=== PATIENT | female | born 1980 | race Caucasian/White ===

== ENCOUNTER 2018-01-11 17:03 | Emergency (ER) | payer MEDICAID ==
[2018-01-11] MEDS: ACETAMINOPHEN 325 MG TAB PO (17:28)
[2018-01-11 17:36] LABS: URINE BLOOD (Dip) POC 1+ (NEGATIVE); URINE GLUCOSE (Dip) POC Negative (NEGATIVE); URINE KETONES (Dip) POC Trace (NEGATIVE); URINE LEUKOCYTE EST (Dip) POC Negative (NEGATIVE); URINE NITRITE (Dip) POC Negative (NEGATIVE); URINE TOTAL PROTEIN POC Negative (NEGATIVE)
== END 2018-01-11 18:57 | disposition home or self-care (01) ==
LOC: FTE 17:03
DX: R10.30 Lower abdominal pain, unspecified (principal); R10.9 Unspecified abdominal pain
CPT/HCPCS: 74018; 81003; 81025; 93005; 99284-25

== ENCOUNTER 2018-03-04 01:49 | Inpatient (IN) | payer MEDICAID, OTHER ==
[2018-03-04 02:32] LABS: ADD MAN DIFF? NO
[2018-03-04 02:43] LABS: ABNORMAL IP MESSAGE 1; BASOPHILS % 0.2 % (0.0-2.0); EOSINOPHILS # 1.2 10^3/ul (0.0-0.5); EOSINOPHILS % 9.8 % (0.0-7.0); HEMATOCRIT 28.8 % (37.0-47.0); HEMOGLOBIN 8.9 g/dl (12.0-16.0); LYMPHOCYTES # 0.6 10^3/ul (0.8-2.9); LYMPHOCYTES % 4.8 % (15.0-51.0); MEAN CORPUSCULAR HEMOGLOBIN 22.6 pg (29.0-33.0); MEAN CORPUSCULAR HGB CONC 30.9 g/dl (32.0-37.0); MEAN CORPUSCULAR VOLUME 73.3 fl (82.0-101.0); MONOCYTE # 0.7 10^3/ul (0.3-0.9); MONOCYTES % 5.4 % (0.0-11.0); NEUTROPHIL # 9.6 10^3/ul (1.6-7.5); NEUTROPHILS % 79.2 % (39.0-77.0); PLATELET COUNT 49 10^3/UL (140-415); RED BLOOD COUNT 3.93 10^6/ul (4.20-5.40); RED CELL DISTRIBUTION WIDTH 21.3 % (11.5-14.5)
[2018-03-04 02:43] LABS: WHITE BLOOD COUNT 12.1 10^3/ul (4.8-10.8)
[2018-03-04 02:45] LABS: POSITIVE DIFF @See below
[2018-03-04 02:54] LABS: INR 1.91; PROTIME 22.3 Sec (11.9-14.9); PT RATIO 1.7
[2018-03-04 02:55] LABS: ALANINE AMINOTRANSFERASE 27 IU/L (13-69); ALBUMIN 2.3 g/dl (3.3-4.9); ALBUMIN/GLOBULIN RATIO 0.82; ALKALINE PHOSPHATASE 74 IU/L (42-121); ANION GAP 15 (8-16); ASPARTATE AMINO TRANSFERASE 27 IU/L (15-46); BILIRUBIN,INDIRECT 0.1 mg/dl (0-1.1); BILIRUBIN,TOTAL 0.1 mg/dl (0.2-1.3); BLOOD UREA NITROGEN 12 mg/dl (7-20); CALCIUM 7.6 mg/dl (8.4-10.2); CARBON DIOXIDE 20 mmol/L (21-31); CHLORIDE 98 mmol/L (97-110); CHOL/HDL RATIO 3.3 RATIO; CHOLESTEROL 107 mg/dl (100-200); CREATININE 0.79 mg/dl (0.44-1.00); GLUCOSE 115 mg/dl (70-220); HDL CHOLESTEROL 32 mg/dl (34-82); LDL CHOLESTEROL,CALCULATED 25 mg/dl; PARTIAL THROMBOPLASTIN TIME 31.7 Sec (25.0-35.0); POTASSIUM 3.8 mmol/L (3.5-5.1); SODIUM 129 mmol/L (135-144); TOTAL PROTEIN 5.1 g/dl (6.1-8.1); TRIGLYCERIDES 249 mg/dl (0-149)
[2018-03-04 03:03] LABS: ADD UMIC NO; UR ASCORBIC ACID NEGATIVE (NEGATIVE); UR BILIRUBIN (Dip) NEGATIVE (NEGATIVE); UR BLOOD (Dip) NEGATIVE (NEGATIVE); UR CLARITY CLEAR (CLEAR); UR COLOR STRAW (YELLOW); UR GLUCOSE (Dip) NEGATIVE (NEGATIVE); UR KETONES (Dip) TRACE mg/dL (NEGATIVE); UR LEUKOCYTE ESTERASE (Dip) NEGATIVE Leu/ul (NEGATIVE); UR NITRITE (Dip) NEGATIVE (NEGATIVE); UR SPECIFIC GRAVITY (Dip) > 1.060 (1.003-1.030); UR TOTAL PROTEIN (Dip) NEGATIVE (NEGATIVE); UR UROBILINOGEN (Dip) NEGATIVE (NEGATIVE)
[2018-03-04 03:07] LABS: CK-MB 1.38 ng/ml (0.0-2.4)
[2018-03-04 03:10] LABS: CREATINE KINASE < 20 IU/L (23-200)
[2018-03-04 03:13] LABS: TROPONIN-I 0.191 ng/ml (0.000-0.120)
[2018-03-04 03:17] LABS: AMPHETAMINE/METHAMPHETAMINE Negative (NEGATIVE); BARBITURATES Negative (NEGATIVE); BENZODIAZEPINES Negative (NEGATIVE); CANNABINOIDS Negative (NEGATIVE); COCAINE Negative (NEGATIVE); OPIATES Positive (NEGATIVE)
[2018-03-04] MEDS: SOD CHLORIDE 0.9% IV (03:25)
[2018-03-04 03:26] LABS: ETHANOL < 10.0 mg/dl
[2018-03-04] MEDS: ASPIRIN 300 MG SUPP PR (03:28)
[2018-03-04] MEDS: IOHEXOL 300MG/ML 150 ML BTL (03:50)
[2018-03-04] MEDS: SOD CHLORIDE 0.9% 100 ML (03:51)
[2018-03-04] MEDS ORDERED: ACETAMINOPHEN 325 MG TAB PO (05:00)
[2018-03-04] MEDS ORDERED: ONDANSETRON 4 MG INJ IV (05:00)
[2018-03-04 05:13] LABS: HEMOGLOBIN A1C 5.2 % (0-5.9)
[2018-03-04] MEDS: RIVAROXABAN 15 MG TABLET PO (09:00)
[2018-03-04 10:09] LABS: ADD MAN DIFF? NO
[2018-03-04 10:13] LABS: ABNORMAL IP MESSAGE 1; BASOPHILS % 0.1 % (0.0-2.0); EOSINOPHILS # 0.7 10^3/ul (0.0-0.5); EOSINOPHILS % 4.7 % (0.0-7.0); HEMATOCRIT 32.6 % (37.0-47.0); HEMOGLOBIN 9.8 g/dl (12.0-16.0); LYMPHOCYTES # 0.6 10^3/ul (0.8-2.9); LYMPHOCYTES % 4.4 % (15.0-51.0); MEAN CORPUSCULAR HEMOGLOBIN 22.1 pg (29.0-33.0); MEAN CORPUSCULAR HGB CONC 30.1 g/dl (32.0-37.0); MEAN CORPUSCULAR VOLUME 73.6 fl (82.0-101.0); MONOCYTE # 0.8 10^3/ul (0.3-0.9); MONOCYTES % 5.4 % (0.0-11.0); NEUTROPHIL # 11.7 10^3/ul (1.6-7.5); NEUTROPHILS % 84.8 % (39.0-77.0); PLATELET COUNT 68 10^3/UL (140-415); RED BLOOD COUNT 4.43 10^6/ul (4.20-5.40); RED CELL DISTRIBUTION WIDTH 22.4 % (11.5-14.5)
[2018-03-04 10:13] LABS: WHITE BLOOD COUNT 13.8 10^3/ul (4.8-10.8)
[2018-03-04 11:06] LABS: ALBUMIN/GLOBULIN RATIO 0.87; ANION GAP 18 (8-16); BILIRUBIN,TOTAL 0.1 mg/dl (0.2-1.3); CHOL/HDL RATIO 2.9 RATIO; LDL CHOLESTEROL,CALCULATED 29 mg/dl
[2018-03-04 11:14] LABS: POTASSIUM 4.8 mmol/L (3.5-5.1); SODIUM 135 mmol/L (135-144)
[2018-03-04 11:15] LABS: ALANINE AMINOTRANSFERASE 25 IU/L (13-69); ALBUMIN 2.8 g/dl (3.3-4.9); ALKALINE PHOSPHATASE 87 IU/L (42-121); ASPARTATE AMINO TRANSFERASE 31 IU/L (15-46); BILIRUBIN,INDIRECT 0.1 mg/dl (0-1.1); BLOOD UREA NITROGEN 10 mg/dl (7-20); CALCIUM 7.3 mg/dl (8.4-10.2); CARBON DIOXIDE 18 mmol/L (21-31); CHLORIDE 104 mmol/L (97-110); CHOLESTEROL 131 mg/dl (100-200); CREATININE 0.57 mg/dl (0.44-1.00); GLUCOSE 83 mg/dl (70-220); HDL CHOLESTEROL 44 mg/dl (34-82); TRIGLYCERIDES 291 mg/dl (0-149)
[2018-03-04 11:41] LABS: HEMOGLOBIN A1C 5.1 % (0-5.9)
[2018-03-04 11:42] LABS: CREATINE KINASE 27 IU/L (23-200)
[2018-03-04 11:55] LABS: CK INDEX 8.4; CK-MB 2.28 ng/ml (0.0-2.4)
[2018-03-04 12:07] LABS: TROPONIN-I 0.205 ng/ml (0.000-0.120)
[2018-03-04 12:19] LABS: T3 UPTAKE 37.3 % (23.5-40.5)
[2018-03-04 12:20] LABS: FREE THYROXINE INDEX (Calc) 3.77 ug/ml (0.65-3.89); T4 (THYROXINE) 10.1 ug/dl (5.5-11.0)
[2018-03-04] MEDS: morphine 2 MG INJ IV (12:58)
[2018-03-04 16:22] LABS: CREATINE KINASE 26 IU/L (23-200)
[2018-03-04 16:34] LABS: CK INDEX 7.3; CK-MB 1.91 ng/ml (0.0-2.4)
[2018-03-04] MEDS: SOD CHLORIDE 0.9% 1,000 ML IV (17:14)
[2018-03-04] MEDS ORDERED: ENOXAPARIN 40 MG/0.4 ML SYG SC (18:00)
[2018-03-04 19:04] LABS: INR 1.18; PROTIME 15.2 Sec (11.9-14.9); PT RATIO 1.2
[2018-03-04 19:05] LABS: PARTIAL THROMBOPLASTIN TIME 26.9 Sec (25.0-35.0)
[2018-03-04 19:08] LABS: D-DIMER 2731.63 ng/ml (<460)
[2018-03-04 20:23] LABS: FIBRIN SPLIT PRODUCT <10 ug/ml (<10)
[2018-03-04] MEDS: ATORVASTATIN 20 MG TAB PO (20:33)
[2018-03-05] MEDS: SOD CHLORIDE 0.9% 1,000 ML IV ×3 (03:35→22:57)
[2018-03-05 05:33] LABS: ADD MAN DIFF? NO
[2018-03-05 05:49] LABS: WHITE BLOOD COUNT 14.3 10^3/ul (4.8-10.8)
[2018-03-05 05:49] LABS: ABNORMAL IP MESSAGE 1; BASOPHILS % 0.3 % (0.0-2.0); EOSINOPHILS # 1.2 10^3/ul (0.0-0.5); EOSINOPHILS % 8.4 % (0.0-7.0); HEMATOCRIT 29.1 % (37.0-47.0); HEMOGLOBIN 8.8 g/dl (12.0-16.0); LYMPHOCYTES # 0.7 10^3/ul (0.8-2.9); LYMPHOCYTES % 5.2 % (15.0-51.0); MEAN CORPUSCULAR HEMOGLOBIN 22.9 pg (29.0-33.0); MEAN CORPUSCULAR HGB CONC 30.2 g/dl (32.0-37.0); MEAN CORPUSCULAR VOLUME 75.8 fl (82.0-101.0); MONOCYTE # 0.8 10^3/ul (0.3-0.9); MONOCYTES % 5.7 % (0.0-11.0); NEUTROPHIL # 11.4 10^3/ul (1.6-7.5); NEUTROPHILS % 79.6 % (39.0-77.0); PLATELET COUNT 73 10^3/UL (140-415); RED BLOOD COUNT 3.84 10^6/ul (4.20-5.40)
[2018-03-05 06:02] LABS: POSITIVE DIFF @See below
[2018-03-05 06:45] LABS: ANION GAP 18 (8-16); BLOOD UREA NITROGEN 14 mg/dl (7-20); CARBON DIOXIDE 15 mmol/L (21-31); CHLORIDE 107 mmol/L (97-110); CREATININE 0.71 mg/dl (0.44-1.00); GLUCOSE 80 mg/dl (70-220); POTASSIUM 4.5 mmol/L (3.5-5.1); SODIUM 135 mmol/L (135-144)
[2018-03-05 10:03] LABS: TROPONIN-I 0.264 ng/ml (0.000-0.120)
[2018-03-05] MEDS: FENTAnyl 50 MCG/ML VIAL IV ×3 (10:20→23:18)
[2018-03-05] MEDS: LIDOCAINE 1% (MDV) 10 ML INJ (15:34)
[2018-03-05] MEDS: ATORVASTATIN 20 MG TAB PO (20:13)
[2018-03-06 08:05] LABS: ADD MAN DIFF? NO
[2018-03-06 08:14] LABS: WHITE BLOOD COUNT 14.8 10^3/ul (4.8-10.8)
[2018-03-06 08:14] LABS: ABNORMAL IP MESSAGE 1; BASOPHILS % 0.2 % (0.0-2.0); EOSINOPHILS # 0.4 10^3/ul (0.0-0.5); HEMATOCRIT 28.6 % (37.0-47.0); HEMOGLOBIN 8.4 g/dl (12.0-16.0); LYMPHOCYTES # 0.4 10^3/ul (0.8-2.9); LYMPHOCYTES % 2.9 % (15.0-51.0); MEAN CORPUSCULAR HEMOGLOBIN 23.3 pg (29.0-33.0); MEAN CORPUSCULAR HGB CONC 29.4 g/dl (32.0-37.0); MEAN CORPUSCULAR VOLUME 79.4 fl (82.0-101.0); MEAN PLATELET VOLUME 9.6 fl (7.4-10.4); MONOCYTE # 0.7 10^3/ul (0.3-0.9); NEUTROPHILS % 87.9 % (39.0-77.0); RED CELL DISTRIBUTION WIDTH 24.3 % (11.5-14.5)
[2018-03-06 08:18] LABS: PLATELET COUNT 86 10^3/UL (140-415); POSITIVE DIFF @See below
[2018-03-06 08:29] LABS: ANION GAP 24 (8-16); BLOOD UREA NITROGEN 9 mg/dl (7-20); CALCIUM 7.9 mg/dl (8.4-10.2); CHLORIDE 118 mmol/L (97-110); CREATININE 0.69 mg/dl (0.44-1.00); GLUCOSE 83 mg/dl (70-220); MAGNESIUM 1.9 mg/dl (1.7-2.5); PHOSPHORUS 4.1 mg/dl (2.5-4.9); POTASSIUM 3.3 mmol/L (3.5-5.1); SODIUM 145 mmol/L (135-144)
[2018-03-06 08:36] LABS: CARBON DIOXIDE 6 mmol/L (21-31)
[2018-03-06] MEDS: POTASSIUM CHLORIDE 30 MEQ in SOD CHLORIDE 0.45% 1,000 ML IV ×3 (11:00→23:52)
[2018-03-06] MEDS: morphine (DRIP) 100 MG/100 ML 100 ML IV (14:31)
[2018-03-07] MEDS: morphine (DRIP) 100 MG/100 ML 100 ML IV ×2 (05:42→19:48)
[2018-03-07] MEDS: LORAZEPAM 2 MG INJ IV (11:52)
[2018-03-07] MEDS ORDERED: ONDANSETRON 4 MG INJ IV (12:00)
[2018-03-07] MEDS ORDERED: LORAZEPAM 2 MG INJ IV ×2 (12:00→13:00)
[2018-03-07] MEDS ORDERED: ARTIFICIAL TEARS 15 ML OPH BOTH EYES (12:00)
[2018-03-07] MEDS: SCOPOLAMINE 1.5 MG PATCH TRANSDERM (12:32)
[2018-03-07] MEDS ORDERED: BISACODYL 10 MG SUPP PR (13:00)
[2018-03-07] MEDS ORDERED: ACETAMINOPHEN 650 MG SUPP PR (13:00)
[2018-03-07] MEDS: DIMETHICONE STICK TOP (18:38)
[2018-03-07] MEDS: ATROPINE 1% 5 ML OPH SL (18:39)
[2018-03-08] MEDS: ATROPINE 1% 5 ML OPH SL ×3 (01:21→09:05)
[2018-03-08] MEDS: ALBUTEROL/IPRATROPIUM (NEB) 3 ML AMP NEB (02:50)
[2018-03-08] MEDS: morphine (DRIP) 100 MG/100 ML 100 ML IV ×2 (05:23→12:08)
[2018-03-08] MEDS ORDERED: ATROPINE 1% 5 ML OPH SL (12:30)
[2018-03-08] MEDS ORDERED: morphine (DRIP) 100 MG/100 ML 100 ML IV (12:30)
[2018-03-08] MEDS ORDERED: morphine 2 MG INJ IV (12:30)
== END 2018-03-08 12:52 | disposition expired | DRG 64 ==
LOC: MS1 03-06 18:14 → E/R 01:49 → ICU 03:23
PROVIDERS: Internal Medicine
PROC: B335ZZZ Magnetic Resonance Imaging (MRI) of Bilateral Common Carotid Arteries (ICD-10-PCS; 2018-03-04)
PROC: B33GZZZ Magnetic Resonance Imaging (MRI) of Bilateral Vertebral Arteries (ICD-10-PCS; 2018-03-04)
PROC: B338ZZZ Magnetic Resonance Imaging (MRI) of Bilateral Internal Carotid Arteries (ICD-10-PCS; 2018-03-04)
PROC: B030YZZ Magnetic Resonance Imaging (MRI) of Brain using Other Contrast (ICD-10-PCS; 2018-03-04)
PROC: 0W9G3ZZ Drainage of Peritoneal Cavity, Percutaneous Approach (ICD-10-PCS; principal; 2018-03-05)
DX: I63.312 Cerebral infarction due to thrombosis of left middle cerebral artery (principal); G93.41 Metabolic encephalopathy; I21.A1 Myocardial infarction type 2; C16.9 Malignant neoplasm of stomach, unspecified; R18.8 Other ascites; J90 Pleural effusion, not elsewhere classified; C78.6 Secondary malignant neoplasm of retroperitoneum and peritoneum; G81.91 Hemiplegia, unspecified affecting right dominant side; D69.6 Thrombocytopenia, unspecified; D69.59 Other secondary thrombocytopenia; D64.9 Anemia, unspecified; R47.01 Aphasia; R29.710 NIHSS score 10; I63.412 Cerebral infarction due to embolism of left middle cerebral artery; I63.432 Cerebral infarction due to embolism of left posterior cerebral artery; Z66 Do not resuscitate; Z79.02 Long term (current) use of antithrombotics/antiplatelets; Z86.711 Personal history of pulmonary embolism
CPT/HCPCS: 36415; 70450; 70496; 70498; 70544; 70549; 70552; 71045; 71275; 72125; 80048; 80053; 80061; 80307; 81003; 81025; 82550; 82553; 82962; 83036; 83605; 83735; 84100; 84436; 84443; 84479; 84484; 85025; 85362; 85378; 85384; 85610; 85730; 87081; 92610; 93005; 93306; 94664; 99291-25